=== PATIENT | female | born 1995 | race African-American/Black ===

== ENCOUNTER 2016-09-20 09:18 | Emergency (ER) | payer MEDICAID ==
[~2016-09-20 09:18] MED LIST: MOTI25CH CHEW
[2016-09-20 09:19] VITALS: BP 112/55; PULSE 80; RESP 15; TEMP 97.7; O2SAT 100
--- NOTE | 2016-09-20 10:12 | PD ---
HPI Chief Complaint: Abdominal Pain Time Seen by Provider: 09:37 Travel History International Travel<30 days: No Contact w/Intl Traveler<30days: No Traveled to known affect area: No History of Present Illness HPI The patient is a 21-year-old Annie female who presents emergency department for left groin pain of 2 weeks' duration. The patient notes an intermittent history of left groin pain that radiates into the medial aspect left leg for the last 2 weeks. The pain is intermittent, there is no obvious exacerbating or alleviating factors. The patient states she will have a sharp pain, like a muscle spasm, and the medial aspect of her left leg that is coming from the groin. The patient states it is self alleviating. The patient denies any dysuria, vaginal bleeding, urgency, frequency, hematuria, nausea, vomiting, abdominal pain, or constipation. The patient's last bowel movement was yesterday, was normal. Patient is with 1 previous miscarriage. The patient denies any known trauma to the affected area. PFSH Past Medical History Medical History: Denies Significant Hx Cancer: No Cardiovascular Problems: No Developmental Delay: No Diabetes: No Diminished Hearing: No Hepatitis: No Hiatal Hernia: No Hypertension: No Medical other: No Respiratory: No Immunizations Current: Yes Thyroid Disease: No Tetanus Vaccination: < 5 Years ?: Unknown LMP: 1 mth ago : 2 Para: 0 Miscarriage: 1 Dilation and Curettage (D&C): Yes Past Surgical History Pacemaker: No Other Surgery: No Social History Alcohol Use: No Tobacco Use: No Substance Use: No Allergies-Medications (Allergen,Severity, Reaction): Coded Allergies: Tomato (Verified Allergy, Mild, HIVES, 09/20/16) Reported Meds & Prescriptions Reported Meds & Active Scripts Active No Active Prescriptions or Reported Medications Review of Systems Except as stated in HPI: all other systems reviewed are Neg General / Constitutional: No: Fever Gastrointestinal: No: Nausea, Vomiting, Abdominal Pain Genitourinary: No: Urgency, Frequency, Dysuria, Hematuria, Pelvic Pain, Discharge, Vaginal Bleeding Musculoskeletal: Positive: Pain Skin: No Rash Neurologic: No: Paresthesia, Sensory Disturbance Physical Exam Narrative GENERAL: Awake, alert, pleasant 21-year-old female who appears her stated age and is in no acute respiratory distress. SKIN: Warm and dry. HEAD: Atraumatic. Normocephalic. EYES: No injection or drainage. ENT: No nasal bleeding or discharge. Mucous membranes pink and moist. NECK: Trachea midline. No JVD. GASTROINTESTINAL: Abdomen soft, minimal suprapubic tenderness. No rebound tenderness, guarding, or rigidity. Back: No CVA tenderness. MUSCULOSKELETAL: The patient locates her origin of pain located over the medial aspect the left leg and inguinal crease. There is no obvious lymphadenopathy. Positive left more pulse. Abduction of the left leg against resistance does not exacerbate her pain, but she does located in that same area as the abductor muscle. No obvious hernia. NEUROLOGICAL: Awake and alert. No obvious cranial nerve deficits. Motor grossly within normal limits. Normal speech. PSYCHIATRIC: Appropriate mood and affect; insight and judgment normal. Data Data Last Documented VS Vital Signs Date Time Temp Pulse Resp B/P Pulse Ox O2 Delivery O2 Flow Rate FiO2 09/20/16 09:19 97.7 80 15 112/55 100 Orders Urinalysis - C+S If Indicated (09/20/16 10:08) Ed Urine Pregnancytest Poc (09/20/16 10:18) Beta Hcg (Quant/Titer) (09/20/16 10:19) Us Pelvis (Ques Pr/Ect)W Trans (09/20/16 ) Ed Poc Ultrasound (09/20/16 ) Labs Laboratory Tests Test 09/20/16 09/20/16 10:15 10:50 Urine Color YELLOW Urine Turbidity CLEAR Urine pH 6.5 Urine Specific [place] 1.024 Urine Protein NEG mg/dL Urine Glucose (UA) NEG mg/dL Urine Ketones NEG mg/dL Urine Occult Blood NEG Urine Nitrite NEG Urine Bilirubin NEG Urine Urobilinogen LESS THAN 2.0 MG/DL Urine Leukocyte Esterase NEG Urine RBC 1 /hpf Urine WBC 1 /hpf Urine Squamous Epithelial 2 /hpf Cells Urine Bacteria RARE /hpf Urine Mucus FEW /lpf Microscopic Urinalysis Comment CULT NOT INDICATED Human Chorionic Gonadotropin, 69900 MIU/ML Quant MDM Medical Decision Making Medical Screen Exam Complete: Yes Emergency Medical Condition: Yes Medical Record Reviewed: Yes Differential Diagnosis Differential diagnosis includes groin strain, femoral hernia, UTI, ectopic , cervicitis, PID, ventral hernia. Narrative Course The patient's physical examination is unremarkable. The patient is currently asymptomatic and there is no precipitating or exacerbating factors during examination. UA was sent to lab and bedside test was obtained. The patient's bedside UA test was positive, therefore, formal beta hCG was sent to lab. Beta hCG was greater than 36,000. Therefore, ultrasound was performed to evaluate for IUP versus ectopic. Ultrasound reveals an IUP with positive heart tones. The patient is advised to take a vitamin, follow-up with industrial gas fitter, and return if symptoms worsen or progress. Diagnosis Primary Impression: Qualified Code: Z33.1 - , unspecified gestational age Additional Instructions: Please provide the patient a copy of her beta hCG results and ultrasound results at discharge. Take a vitamin daily. Follow-up with an industrial gas fitter. Work excuse for . Return if symptoms worsen or progress. Med/Other Pt SpecificInfo: No Change to Meds Scripts No Active Prescriptions or Reported Meds Disposition: 01 DISCHARGE HOME Condition: Stable Joel Dowling MD Sep 20, 2016 10:12
[2016-09-20 10:40] LABS: BACTERIA, URINE RARE /hpf; BLOOD, URINE NEG (NEG); GLUCOSE,URINE NEG (NEG); KETONE, URINE NEG (NEG); MUCUS URINE FEW /lpf (OCC); NITRITE,URINE NEG (NEG); PH, URINE 6.5 (5.0-8.5); SQUAMOUS EPITHELIAL CELL URINE 2 /hpf (0-5); URINE COLOR YELLOW (YELLW/STRAW)
[2016-09-20 10:48] LABS: COMMENT (UR) CULT NOT INDICATED; CULTURE IF INDICATED CULT NOT INDICATED
[2016-09-20 11:41] LABS: BETA HCG QUANT 36826 MIU/ML (0-5)
[2016-09-20 12:00] VITALS: BP 100/56; PULSE 78; RESP 16; O2SAT 100
--- NOTE | 2016-09-20 12:27 | RADRPT ---
EXAM DATE/TIME: 09/20/2016 11:18 [facility] COMPARISON: No previous studies available for comparison. INDICATIONS : Pelvic pain. LAB(S): Beta-hC,826 MEDICAL HISTORY : . SURGICAL HISTORY : D&C. ENCOUNTER: Initial ACUITY: 2 weeks PAIN SCORE: 2/10 LOCATION: Bilateral pelvis MEASUREMENTS: RIGHT OVARY: 3.3 x 1.9 x 2.6 cm UTERUS: 8.8 x 4.9 x 6.2 cm ENDOMETRIAL STRIPE: >20 mm LEFT OVARY: 3.6 x 1.5 x 2.0 cm FINDINGS: UTERUS: There is a single live IUP with a gestational age of 8 weeks 2 days. The CRL is 1.7 cm. A yolk sac is seen. cardiac activity is seen. RIGHT OVARY: The right ovary appears grossly normal. Small cysts are seen. LEFT OVARY: The left ovary appears grossly normal. Small cysts are seen. MISCELLANEOUS: There is minimal free fluid present. CONCLUSION: Single live IUP at 8 weeks 2 days. Eben Hicks MD on September 20, 2016 at 12:24 Board Certified Radiologist. This report was verified electronically.
== END 2016-09-20 12:59 | disposition home or self-care (01) ==
LOC: NEPC 09:18
DX: R10.32 Left lower quadrant pain (principal); Z33.1 Pregnant state, incidental
CPT/HCPCS: 76700; 76817; 81001; 84702; 84703

== ENCOUNTER 2016-10-18 20:26 | Emergency (ER) | payer MEDICAID ==
[~2016-10-18] VITALS: Ht 154.9 cm; Wt 55.0 kg
[2016-10-18 20:28] VITALS: BP 123/70; PULSE 59; RESP 16; TEMP 98.5; O2SAT 100
--- NOTE | 2016-10-18 20:33 | PD ---
Physical Exam Time Seen by Provider: 20:31 Narrative 21 y/o female c/o vaginal bleeding. 12 weeks , US here on september 20, IUP. Endorses abdominal pain. Denies n/v/d. VSS seen at triage desk. Awaiting bed placement. 2133: Left AMA. Data Data Last Documented VS Vital Signs Date Time Temp Pulse Resp B/P Pulse Ox O2 Delivery O2 Flow Rate FiO2 10/18/16 20:28 98.5 59 16 123/70 100 MDM Medical Record Reviewed: Yes Supervised Visit with PAM: Yes Scripts No Active Prescriptions or Reported Meds Tyler Bueno Oct 18, 2016 20:33
[2016-10-19] MEDS ORDERED: NORC5TAB PO (09:52)
== END 2016-10-18 21:38 | disposition left against medical advice (07) ==
LOC: NED 20:26
DX: O26.891 Other specified pregnancy related conditions, first trimester (principal); R10.30 Lower abdominal pain, unspecified
CPT/HCPCS: 99281

== ENCOUNTER 2016-10-19 01:38 | Emergency (ER) | payer MEDICAID ==
[2016-10-19 01:41] VITALS: BP 108/60; PULSE 78; RESP 20; TEMP 98.5; O2SAT 100
[2016-10-19] MEDS ORDERED: SODIUM CHLORIDE 0.9% FLUSH 10 ML FLUSH IVF PRN (04:45)
[2016-10-19 05:02] LABS: AUTOMATED NEUTROPHIL # 4.4 TH/MM3 (1.8-7.7); BASOPHIL % 0.4 % (0.0-2.0); EOSINOPHIL # 0.1 TH/MM3 (0-0.4); EOSINOPHIL % 0.7 % (0.0-4.0); HEMATOCRIT 36.6 % (35.0-46.0); LYMPH % 34.2 % (9.0-44.0); LYMPHOCYTE # 2.6 TH/MM3 (1.0-4.8); MEAN CELL VOLUME 86.4 FL (80.0-100.0); MEAN CORPUSCULAR HEMOGLOBIN 28.9 PG (27.0-34.0); MEAN CORPUSCULAR HGB CONC 33.4 % (32.0-36.0); MONO % 5.9 % (0.0-8.0); NEUT % 58.8 % (16.0-70.0); PLATELET COUNT 346 TH/MM3 (150-450); RED BLOOD COUNT 4.23 MIL/MM3 (4.00-5.30); RED CELL DISTRIBUTION WIDTH 13.2 % (11.6-17.2); WHITE BLOOD COUNT 7.5 TH/MM3 (4.0-11.0)
[2016-10-19 05:07] LABS: HEMO FLAGS DIFF FINAL
--- NOTE | 2016-10-19 05:08 | PD ---
HPI Chief Complaint: Abdominal Pain Time Seen by Provider: 04:49 Travel History International Travel<30 days: No Contact w/Intl Traveler<30days: No Traveled to known affect area: No History of Present Illness HPI Patient is a 21-year-old female who is A1 who presents to the ER with c/o of possible miscarriage. Patient reports that for the past 24 hours, she has had vaginal spotting which is now progressed to vaginal bleeding. Patient reports that she is passing large clots, reports concerns that she is having a miscarriage. Patient reports that she thinks that she is around 12 weeks , reports that she has seen Dr. Meeks in the past for her first which she had a normal delivery. Reports increased cramping to lower abdomen PFSH Past Medical History Medical History: Denies Significant Hx Diminished Hearing: No Immunizations Current: Yes Tetanus Vaccination: < 5 Years Influenza Vaccination: No ?: LMP: STATES 3 MONTHS : 2 Para: 0 Miscarriage: 1 Dilation and Curettage (D&C): Yes Past Surgical History Surgical History: No Previous Surgery Other Surgery: No Social History Alcohol Use: No Tobacco Use: No Substance Use: No Allergies-Medications (Allergen,Severity, Reaction): Coded Allergies: Tomato (Verified Allergy, Mild, HIVES, 10/19/16) Reported Meds & Prescriptions Reported Meds & Active Scripts Active No Active Prescriptions or Reported Medications Review of Systems General / Constitutional: No: Fever Eyes: No: Visual changes HENT: No: Headaches Cardiovascular: No: Chest Pain or Discomfort Respiratory: No: Shortness of Breath Gastrointestinal: Positive: Abdominal Pain Genitourinary: Positive: Vaginal Bleeding, No: Dysuria Musculoskeletal: No: Pain Skin: No Rash Neurologic: No: Weakness Psychiatric: No: Depression Endocrine: No: Polydipsia Hematologic/Lymphatic: No: Easy Bruising Physical Exam Narrative GENERAL: moderate distress SKIN: Focused skin assessment warm/dry. HEAD: Atraumatic. Normocephalic. EYES: Pupils equal and round. No injection or drainage. ENT: No nasal bleeding or discharge. Mucous membranes pink and moist. NECK: Trachea midline. No JVD. CARDIOVASCULAR: Regular rate and rhythm. No murmur appreciated. RESPIRATORY: No accessory muscle use. Clear to auscultation. Breath sounds equal bilaterally. GASTROINTESTINAL: Abdomen soft, increased tenderness to lower abdomen : pelvic exam performed with RN at bedside, patient with significant amount of blood and clots in vaginal vault, blood was evacuated using large cotton tips as well as low suction MUSCULOSKELETAL: No obvious deformities. No clubbing. No cyanosis. No edema. NEUROLOGICAL: Awake and alert. No obvious cranial nerve deficits. Motor grossly within normal limits. Normal speech. PSYCHIATRIC: Appropriate mood and affect; insight and judgment normal. Data Data Last Documented VS Vital Signs Date Time Temp Pulse Resp B/P Pulse Ox O2 Delivery O2 Flow Rate FiO2 10/19/16 06:17 16 10/19/16 05:35 84 107/67 100 Room Air 10/19/16 01:41 98.5 Orders Beta Hcg (Quant/Titer) (10/19/16 04:40) Complete Blood Count With Diff (10/19/16 04:40) Comprehensive Metabolic Panel (10/19/16 04:40) Gc And Chlamydia Pcr (10/19/16 04:40) Complete Rh (10/19/16 04:40) Wet Prep Profile (10/19/16 04:40) Urinalysis - C+S If Indicated (10/19/16 04:40) Ua Includes Microscopic (10/19/16 04:40) Iv Access Insert/Monitor (10/19/16 04:40) Sodium Chloride 0.9% Flush (Ns Flush) (10/19/16 04:45) Ed Urine Pregnancytest Poc (10/19/16 04:40) Morphine Inj (Morphine Inj) (10/19/16 05:15) Ondansetron Inj (Zofran Inj) (10/19/16 05:15) Morphine Inj (Morphine Inj) (10/19/16 05:30) Sodium Chlor 0.9% 1000 Ml Inj (Ns 1000 M (10/19/16 05:45) Urine Culture (10/19/16 05:30) Complete Blood Count With Diff (10/19/16 06:29) Us Pelvis (Ques Preg/Ectopic) (10/19/16 ) Misoprostol (Cytotec) (10/19/16 07:15) Morphine Inj (Morphine Inj) (10/19/16 07:15) Misoprostol (Cytotec) (10/19/16 07:30) Labs Laboratory Tests Test 10/19/16 10/19/16 10/19/16 04:50 05:30 06:45 White Blood Count 7.5 TH/MM3 9.5 TH/MM3 Red Blood Count 4.23 MIL/MM3 3.79 MIL/MM3 Hemoglobin 12.2 GM/DL 11.1 GM/DL Hematocrit 36.6 % 34.2 % Mean Corpuscular Volume 86.4 FL 90.4 FL Mean Corpuscular Hemoglobin 28.9 PG 29.2 PG Mean Corpuscular Hemoglobin 33.4 % 32.3 % Concent Red Cell Distribution Width 13.2 % 13.8 % Platelet Count 346 TH/MM3 202 TH/MM3 Mean Platelet Volume 9.0 FL 8.3 FL Neutrophils (%) (Auto) 58.8 % 74.1 % Lymphocytes (%) (Auto) 34.2 % 16.6 % Monocytes (%) (Auto) 5.9 % 8.3 % Eosinophils (%) (Auto) 0.7 % 0.5 % Basophils (%) (Auto) 0.4 % 0.5 % Neutrophils # (Auto) 4.4 TH/MM3 7.1 TH/MM3 Lymphocytes # (Auto) 2.6 TH/MM3 1.6 TH/MM3 Monocytes # (Auto) 0.4 TH/MM3 0.8 TH/MM3 Eosinophils # (Auto) 0.1 TH/MM3 0.1 TH/MM3 Basophils # (Auto) 0.0 TH/MM3 0.0 TH/MM3 CBC Comment DIFF FINAL DIFF FINAL Differential Comment Sodium Level 137 MEQ/L Potassium Level 4.3 MEQ/L Chloride Level 107 MEQ/L Carbon Dioxide Level 20.4 MEQ/L Anion Gap 10 MEQ/L Blood Urea Nitrogen 8 MG/DL Creatinine 0.71 MG/DL Estimat Glomerular Filtration 125 ML/MIN Rate Random Glucose 136 MG/DL Calcium Level 9.0 MG/DL Total Bilirubin 0.6 MG/DL Aspartate Amino Transf 18 U/L (AST/SGOT) Alanine Aminotransferase 14 U/L (ALT/SGPT) Alkaline Phosphatase 79 U/L Total Protein 8.0 GM/DL Albumin 3.5 GM/DL Human Chorionic Gonadotropin, 2395 MIU/ML Quant Blood Type O POSITIVE Rho(D) Type POSITIVE Urine Color YELLOW Urine Turbidity HAZY Urine pH 7.0 Urine Specific [place] 1.024 Urine Protein 100 mg/dL Urine Glucose (UA) TRACE mg/dL Urine Ketones NEG mg/dL Urine Occult Blood TRACE Urine Nitrite NEG Urine Bilirubin NEG Urine Urobilinogen LESS THAN 2.0 MG/DL Urine Leukocyte Esterase NEG Urine RBC 3 /hpf Urine WBC 7 /hpf Urine Squamous Epithelial <1 /hpf Cells Urine Bacteria RARE /hpf Urine Hyaline Casts 20 /lpf Urine Granular Casts 27 /lpf Urine Mucus MANY /lpf Microscopic Urinalysis Comment CATH-CULTURE IND MDM Medical Decision Making Medical Screen Exam Complete: Yes Emergency Medical Condition: Yes Interpretation(s) Vital Signs Date Time Temp Pulse Resp B/P Pulse Ox O2 Delivery O2 Flow Rate FiO2 10/19/16 02:07 16 10/19/16 01:41 98.5 78 20 108/60 100 Differential Diagnosis Spontaneous miscarriage, , ectopic Narrative Course 21-year-old female who is A1 presents to ER with c/o of irregular vaginal bleeding. Patient reports that for the past 24 hours, she has had increased lower abdominal cramping and vaginal bleeding. Patient concerned for possible miscarriage. Plan to perform pelvic exam on patient. Patient was Rh positive in the past, does not require RhoGAM. Plan to obtain HGC quant Pelvic exam performed, it appears the patient is having a miscarriage at this time. Patient with significant of blood in vaginal vault with clots. Blood and clots were evacuated using suction as well as until forceps and large cotton tips case reviewed with Dr. Meeks - recommends cytotec 800micrograms, if patient stops bleeding, then she can be safely discharged to home after repeat hgb. if patient continues to have vaginal bleeding, patient may possibly require D&C CBC & BMP Diagram 10/19/16 04:50 10/19/16 06:45 repeat hgb 11.1 - most likely dilutional as patient did receive 1 liter of IVF Patient reports that she still has heavy bleeding, will administer Cytotec and observe Critical Care Narrative Aggregate critical care time was 25 minutes. Time to perform other separately billable procedures was not included in the critical care time. My time did not include minutes spent treating any other patients simultaneously or on activities that did not directly contribute to the patient's treatment. The services I provided to this patient were to treat and/or prevent clinically significant deterioration that could result in: , decompensation, deterioration I provided critical care services requiring my management, as noted below: Chart data review, documentation time, medication orders and management, vital sign assessments/reviewing monitor data, ordering and reviewing lab tests, ordering and interpreting/reviewing x-rays and diagnostic studies, care of the patient and discussion of the patient with the admitting physicians. Diagnosis Primary Impression: Miscarriage Referrals: Radha Meeks MD Patient Instructions: General Instructions, Narcotic given in the ED Additional Instructions: please follow up with your electroplater apprentice as soon as possible return to ER as needed please follow up with your primary care doctor Scripts No Active Prescriptions or Reported Meds Silvia Jordan DO Oct 19, 2016 05:08
[2016-10-19] MEDS ORDERED: MORPHINE SULFATE 4 MG/ML INJ IV PUSH ONE ×3 (05:15→07:15)
[2016-10-19] MEDS ORDERED: ONDANSETRON HCL 4 MG/2 ML VIAL IV PUSH ONE (05:15)
[2016-10-19 05:34] LABS: ALKALINE PHOSPHATASE 79 U/L (45-117); BETA HCG QUANT 2395 MIU/ML (0-5); TOTAL BILIRUBIN ADULT 0.6 MG/DL (0.2-1.0)
[2016-10-19 05:35] VITALS: BP 107/67; PULSE 84; RESP 16; O2SAT 100
[2016-10-19 05:41] LABS: ALT (GPT) 14 U/L (10-53); ANION GAP 10 MEQ/L (5-15); AST (GOT) 18 U/L (15-37); BICARBONATE 20.4 MEQ/L (21.0-32.0); BLOOD UREA NITROGEN 8 MG/DL (7-18); CHLORIDE 107 MEQ/L (98-107); GLOMERULAR FILTRATION RATE 125 ML/MIN (>89); POTASSIUM 4.3 MEQ/L (3.5-5.1); SODIUM (NA) 137 MEQ/L (136-145)
[2016-10-19] MEDS ORDERED: SODIUM CHLOR 0.9% 1000 ML INJ 1,000 ML IV ONE ×2 (05:45→07:30)
[2016-10-19 05:51] LABS: BACTERIA, URINE RARE /hpf; BLOOD, URINE TRACE (NEG); COMMENT (UR) CATH-CULTURE IND; CULTURE IF INDICATED CATH CULTURE IND; GLUCOSE,URINE TRACE mg/dL (NEG); GRANULAR CAST, URINE 27 /lpf; HYALINE CAST, URINE 20 /lpf (RARE); KETONE, URINE NEG (NEG); MUCUS URINE MANY /lpf (OCC); NITRITE,URINE NEG (NEG); SQUAMOUS EPITHELIAL CELL URINE <1 /hpf (0-5); URINE COLOR YELLOW (YELLW/STRAW)
[2016-10-19 07:04] LABS: AUTOMATED NEUTROPHIL # 7.1 TH/MM3 (1.8-7.7); BASOPHIL % 0.5 % (0.0-2.0); EOSINOPHIL # 0.1 TH/MM3 (0-0.4); EOSINOPHIL % 0.5 % (0.0-4.0); HEMATOCRIT 34.2 % (35.0-46.0); HEMO FLAGS DIFF FINAL; LYMPH % 16.6 % (9.0-44.0); LYMPHOCYTE # 1.6 TH/MM3 (1.0-4.8); MEAN CELL VOLUME 90.4 FL (80.0-100.0); MEAN CORPUSCULAR HEMOGLOBIN 29.2 PG (27.0-34.0); MEAN CORPUSCULAR HGB CONC 32.3 % (32.0-36.0); MONO % 8.3 % (0.0-8.0); NEUT % 74.1 % (16.0-70.0); PLATELET COUNT 202 TH/MM3 (150-450); RED BLOOD COUNT 3.79 MIL/MM3 (4.00-5.30); RED CELL DISTRIBUTION WIDTH 13.8 % (11.6-17.2); WHITE BLOOD COUNT 9.5 TH/MM3 (4.0-11.0)
[2016-10-19] MEDS ORDERED: MISOPROSTOL 200 MCG TAB VAGINAL ONE ×2 (07:15→07:30)
--- NOTE | 2016-10-19 07:57 | RADRPT ---
EXAM DATE/TIME: 10/19/2016 06:20 [facility] COMPARISON: US PELVIS (QUEST PREG/ECTOPIC) W/TRANSVAG, September 20, 2016, 11:18. INDICATIONS : Vaginal bleeding. LAB(S): Beta-hC,395 MEDICAL HISTORY : . SURGICAL HISTORY : D&C. ENCOUNTER: Initial ACUITY: 1 day PAIN SCORE: 10/10 LOCATION: Bilateral pelvis MEASUREMENTS: UTERUS: 9.8 x 5.0 x 4.8 cm ENDOMETRIAL STRIPE: >20 mm RIGHT OVARY: 2.1 x 1.3 x 1.6 cm LEFT OVARY: 1.7 x 2.6 x 1.8 cm FINDINGS: Please note that the patient declined transvaginal exam. UTERUS: Myometrium is homogeneous without mass. There is heterogeneous echotexture the myometrium which is th ickened. Hypoechoic and anechoic areas are present within the endometrium and endocervical canal. RIGHT OVARY: Ovary contains no mass or significant cystic lesion. LEFT OVARY: Ovary contains no mass or significant cystic lesion. There is a simple cyst measuring 13 mm. MISCELLANEOUS: No free fluid. CONCLUSION: 1. The IUP documented on 09/20/2016 is no longer present indicating loss of . Suggest clinica l followup to ensure normalization of beta-hCG values. 2. The endometrium remains heterogeneously thickened with likely blood products within the endometria l and endocervical canal. Eben Sparks MD on October 19, 2016 at 7:52 Board Certified Radiologist. This report was verified electronically.
[2016-10-19 08:00] VITALS: BP 102/55; PULSE 72; RESP 16; O2SAT 100
[2016-10-19] MEDS ORDERED: MORPHINE SULFATE 4 MG/ML INJ IV PUSH PRN (08:15)
--- NOTE | 2016-10-19 08:15 | PD ---
Physical Exam Date Seen by Provider: Oct 19, 2016 Narrative Care assumed from Dr. Jordan at 7 AM. Patient is having a miscarriage. Dr. Jordan had consult to Dr. Meeks who has now seen the patient. He recommends Cytotec and observation. He also recommends that we be very liberal with pain medication. Data Data Last Documented VS Vital Signs Date Time Temp Pulse Resp B/P Pulse Ox O2 Delivery O2 Flow Rate FiO2 10/19/16 08:00 72 16 102/55 100 Room Air 10/19/16 01:41 98.5 Orders Beta Hcg (Quant/Titer) (10/19/16 04:40) Complete Blood Count With Diff (10/19/16 04:40) Comprehensive Metabolic Panel (10/19/16 04:40) Gc And Chlamydia Pcr (10/19/16 04:40) Complete Rh (10/19/16 04:40) Wet Prep Profile (10/19/16 04:40) Urinalysis - C+S If Indicated (10/19/16 04:40) Ua Includes Microscopic (10/19/16 04:40) Iv Access Insert/Monitor (10/19/16 04:40) Sodium Chloride 0.9% Flush (Ns Flush) (10/19/16 04:45) Ed Urine Pregnancytest Poc (10/19/16 04:40) Morphine Inj (Morphine Inj) (10/19/16 05:15) Ondansetron Inj (Zofran Inj) (10/19/16 05:15) Morphine Inj (Morphine Inj) (10/19/16 05:30) Sodium Chlor 0.9% 1000 Ml Inj (Ns 1000 M (10/19/16 05:45) Urine Culture (10/19/16 05:30) Complete Blood Count With Diff (10/19/16 06:29) Us Pelvis (Ques Preg/Ectopic) (10/19/16 ) Misoprostol (Cytotec) (10/19/16 07:15) Morphine Inj (Morphine Inj) (10/19/16 07:15) Misoprostol (Cytotec) (10/19/16 07:30) Sodium Chlor 0.9% 1000 Ml Inj (Ns 1000 M (10/19/16 07:30) Morphine Inj (Morphine Inj) (10/19/16 08:15) Labs Laboratory Tests Test 410/19/16 10/19/16 04:50 05:30 06:45 White Blood Count 7.5 TH/MM3 9.5 TH/MM3 Red Blood Count 4.23 MIL/MM3 3.79 MIL/MM3 Hemoglobin 12.2 GM/DL 11.1 GM/DL Hematocrit 36.6 % 34.2 % Mean Corpuscular Volume 86.4 FL 90.4 FL Mean Corpuscular Hemoglobin 28.9 PG 29.2 PG Mean Corpuscular Hemoglobin 33.4 % 32.3 % Concent Red Cell Distribution Width 13.2 % 13.8 % Platelet Count 346 TH/MM3 202 TH/MM3 Mean Platelet Volume 9.0 FL 8.3 FL Neutrophils (%) (Auto) 58.8 % 74.1 % Lymphocytes (%) (Auto) 34.2 % 16.6 % Monocytes (%) (Auto) 5.9 % 8.3 % Eosinophils (%) (Auto) 0.7 % 0.5 % Basophils (%) (Auto) 0.4 % 0.5 % Neutrophils # (Auto) 4.4 TH/MM3 7.1 TH/MM3 Lymphocytes # (Auto) 2.6 TH/MM3 1.6 TH/MM3 Monocytes # (Auto) 0.4 TH/MM3 0.8 TH/MM3 Eosinophils # (Auto) 0.1 TH/MM3 0.1 TH/MM3 Basophils # (Auto) 0.0 TH/MM3 0.0 TH/MM3 CBC Comment DIFF FINAL DIFF FINAL Differential Comment Sodium Level 137 MEQ/L Potassium Level 4.3 MEQ/L Chloride Level 107 MEQ/L Carbon Dioxide Level 20.4 MEQ/L Anion Gap 10 MEQ/L Blood Urea Nitrogen 8 MG/DL Creatinine 0.71 MG/DL Estimat Glomerular Filtration 125 ML/MIN Rate Random Glucose 136 MG/DL Calcium Level 9.0 MG/DL Total Bilirubin 0.6 MG/DL Aspartate Amino Transf 18 U/L (AST/SGOT) Alanine Aminotransferase 14 U/L (ALT/SGPT) Alkaline Phosphatase 79 U/L Total Protein 8.0 GM/DL Albumin 3.5 GM/DL Human Chorionic Gonadotropin, 2395 MIU/ML Quant Blood Type O POSITIVE Rho(D) Type POSITIVE Urine Color YELLOW Urine Turbidity HAZY Urine pH 7.0 Urine Specific [place] 1.024 Urine Protein 100 mg/dL Urine Glucose (UA) TRACE mg/dL Urine Ketones NEG mg/dL Urine Occult Blood TRACE Urine Nitrite NEG Urine Bilirubin NEG Urine Urobilinogen LESS THAN 2.0 MG/DL Urine Leukocyte Esterase NEG Urine RBC 3 /hpf Urine WBC 7 /hpf Urine Squamous Epithelial <1 /hpf Cells Urine Bacteria RARE /hpf Urine Hyaline Casts 20 /lpf Urine Granular Casts 27 /lpf Urine Mucus MANY /lpf Microscopic Urinalysis Comment CATH-CULTURE IND MDM Supervised Visit with PAM: No Narrative Course The patient has had very little bleeding since receiving the Cytotec. Dr. Meeks will see her in follow-up in one week. Physician Communication Physician Communication Dr Meeks Diagnosis Primary Impression: Miscarriage Referrals: Radha Meeks MD 1 week Patient Instructions: General Instructions, Miscarriage (DC), Narcotic given in the ED Additional Instruction: please follow up with your electrical transmission engineer as soon as possible return to ER as needed please follow up with your primary care doctor Scripts Hydrocodone-Acetaminophen ([place])5-325 mg Tab1 Tab PO Q4H PRN (PAIN) #12 TAB Ref 0 Prov:Cristin Jacques MD 10/19/16 Disposition: 01 DISCHARGE HOME Condition: Stable Cristin Jacques MD Oct 19, 2016 08:15
--- NOTE | 2016-10-19 08:26 | MB ---
cc: [facility] DATE OF CONSULTATION October 19, 2016 ER NOTE CHIEF COMPLAINT Miscarriage in process. HISTORY OF PRESENT ILLNESS Ms. Mcdonough is a 21-year-old female, para 1-0-1-1 who presents to the emergency room with bleeding heavily and a possible miscarriage. She was seen at 8 weeks in the ER, saw heart tones and was told that she was . She began bleeding yesterday and it became heavy. She came to the emergency room for treatment. PAST OB HISTORY Para 1-0-1-1. She had a missed AB, got a D&E and she had one at term. PAST FLUX MIXER HISTORY Negative. PAST SURGICAL HISTORY Remarkable for dilation and evacuation of the uterus after a missed AB. PAST MEDICAL HISTORY Remarkable for anxiety. ALLERGIES No known drug allergies. CURRENT MEDICATIONS None. FAMILY HISTORY Noncontributory. SOCIAL HISTORY She is single. She does not smoke, drink or take medications. REVIEW OF SYSTEMS HEENT: She denies any headaches. CARDIOVASCULAR: No chest pain or pressure. RESPIRATORY: No shortness of breath or coughing. GASTROINTESTINAL: She does have lower abdominal pelvic pain, cramping from the miscarriage. No change in bowel or bladder habits. No melena, no hematochezia. : She has vaginal bleeding. She denies any dysuria. SKIN: No rash, no recent history of illness. NEUROLOGIC: No weakness or problems with gait. PHYSICAL EXAMINATION GENERAL: A well-developed, well-nourished female in no acute distress resting comfortably in bed. VITAL SIGNS: Her temperature is 98.5. Her pulse is 84, respirations 16, blood pressure 107/67. HEENT: Normocephalic, atraumatic. NECK: Supple. Trachea in the midline. CHEST: Clear to auscultation and percussion. HEART: The heart has a regular rate and rhythm. ABDOMEN: The abdomen is soft, nontender, scaphoid. PELVIC EXAM: External genitalia looks normal. Her bleeding is mild at this time. LABORATORY WORKUP White count of 9.5. Her hemoglobin is 11.1, hematocrit 34. Her ultrasound reveals possible products of conception in the uterus. ASSESSMENT AND PLAN 1. Spontaneous miscarriage. We will go ahead and give her some Cytotec and see if we can empty the uterus in that way. We will keep her comfortable in the meantime. She may need to go to the operating room for a D&C. However, we will try to avoid that if possible. Plan to watch her for a couple hours to make sure she is okay. 2. Her blood type is positive. She does not need RhoGAM. We will keep an eye on her in the emergency room and see how she does. R. MD BERENICE [place]/BRIDGETT /8:00 AM /8:13 AM
[2016-10-19 09:30] VITALS: BP 104/63; PULSE 100; RESP 16; O2SAT 100
[2016-10-19] MEDS ORDERED: NORC5TAB PO (09:52)
== END 2016-10-19 10:32 | disposition home or self-care (01) ==
LOC: NEPC 01:38
DX: O03.9 Complete or unspecified spontaneous abortion without complication (principal)
CPT/HCPCS: 76700; 80053; 81001; 84702; 85025; 86901; 87086; 96361; 96374; 96375; 96376; 99284; J2270; J2405; J7030

== ENCOUNTER 2017-07-19 08:08 | Emergency (ER) | payer MEDICAID ==
[~2017-07-19] VITALS: Ht 154.9 cm; Wt 53.5 kg
[2017-07-19 08:09] VITALS: BP 115/57; PULSE 72; RESP 16; TEMP 98.9; O2SAT 99
--- NOTE | 2017-07-19 10:16 | PD ---
HPI Chief Complaint: Abdominal Pain Time Seen by Provider: 10:16 Travel History International Travel<30 days: No Contact w/Intl Traveler<30days: No Traveled to known affect area: No History of Present Illness HPI 22-year-old female came to the emergency room with history of lower abdominal pressure and discomfort for past 1 month. When I arrived in the room to see the patient there was a bedside done already which was positive. Patient says her last menstrual period was June 09, 2017. This would make the patient is A2. No bleeding or spotting. No history of dysuria. Patient says that knowing that she is now would make sense of how she has been feeling. Patient was eating potato chips and drinking pineapple juice when I arrived in the room to see her. [facility]LY [facility] Past Medical History Narrative Medical List of her past medical, surgical, social and family history is reviewed from the nursing note. Diminished Hearing: No Immunizations Current: Yes ?: Unknown LMP: : 2 Para: 0 Miscarriage: 1 Dilation and Curettage (D&C): Yes Past Surgical History Other Surgery: No Social History Alcohol Use: No Tobacco Use: No Substance Use: No Allergies-Medications (Allergen,Severity, Reaction): Coded Allergies: tomato (Verified Allergy, Mild, HIVES, 07/19/17) Comments List of allergies reviewed from the nursing note. Reported Meds & Prescriptions Reported Meds & Active Scripts Active No Active Prescriptions or Reported Medications Narrative Medication List of her home medications reviewed from the nursing note. Review of Systems Except as stated in HPI: all other systems reviewed are Neg Genitourinary: Positive: Pelvic Pain Physical Exam Narrative GENERAL: Awake, alert, no obvious distress SKIN: Focused skin assessment warm/dry. HEAD: Atraumatic. Normocephalic. EYES: Pupils equal and round. No scleral icterus. No injection or drainage. ENT: No nasal bleeding or discharge. Mucous membranes pink and moist. NECK: Trachea midline. No JVD. CARDIOVASCULAR: Regular rate and rhythm. No murmur appreciated. RESPIRATORY: No accessory muscle use. Clear to auscultation. Breath sounds equal bilaterally. GASTROINTESTINAL: Abdomen soft, non-tender, nondistended. Hepatic and splenic margins not palpable. MUSCULOSKELETAL: No obvious deformities. No clubbing. No cyanosis. No edema. NEUROLOGICAL: Awake and alert. No obvious cranial nerve deficits. Motor grossly within normal limits. Normal speech. PSYCHIATRIC: Appropriate mood and affect; insight and judgment normal. Data Data Last Documented VS Vital Signs Date Time Temp Pulse Resp B/P (MAP) Pulse Ox O2 Delivery O2 Flow Rate FiO2 07/19/17 11:28 07/19/17 08:09 98.9 72 16 99 Room Air Orders Orders Urinalysis - C+S If Indicated (07/19/17 10:23) Ed Urine Pregnancytest Poc (07/19/17 10:42) Ed Discharge Order (07/19/17 10:52) Labs Laboratory Tests Test 07/19/17 10:00 Urine Color YELLOW Urine Turbidity CLEAR Urine pH 7.5 Urine Specific Merritt 1.019 Urine Protein NEG mg/dL Urine Glucose (UA) NEG mg/dL Urine Ketones NEG mg/dL Urine Occult Blood NEG Urine Nitrite NEG Urine Bilirubin NEG Urine Urobilinogen LESS THAN 2.0 MG/DL Urine Leukocyte Esterase NEG Urine RBC LESS THAN 1 /hpf Urine WBC 1 /hpf Urine Squamous Epithelial Cells 1 /hpf Urine Mucus FEW /lpf Microscopic Urinalysis Comment CULT NOT INDICATED MDM Medical Decision Making Medical Screen Exam Complete: Yes Emergency Medical Condition: Yes Medical Record Reviewed: Yes Differential Diagnosis , UTI Narrative Course 10:55 AM urine was positive and UA was negative for UTI. I'm comfortable discharging her home with instructions. Procedures EKG Prior to Arrival: No Diagnosis Primary Impression: First trimester Additional Impression: Sensation of pelvic pressure during Referrals: Primary Care Physician Additional Instructions: Please take vitamins daily which is available [id number]. Drink lots of fluids to keep herself hydrated. Try to get an appointment with the OB for this to follow up with. Return to the ER if condition worsens or any other new concerns like vaginal bleeding. Scripts No Active Prescriptions or Reported Meds Disposition: 01 DISCHARGE HOME Condition: Stable Ward Gomez MD Jul 19, 2017 10:16
[2017-07-19 10:45] LABS: BILIRUBIN, URINE NEG (NEG); BLOOD, URINE NEG (NEG); GLUCOSE,URINE NEG (NEG); KETONE, URINE NEG (NEG); MUCUS URINE FEW /lpf (OCC); NITRITE,URINE NEG (NEG); PH, URINE 7.5 (5.0-8.5); SQUAMOUS EPITHELIAL CELL URINE 1 /hpf (0-5); URINE COLOR YELLOW (YELLW/STRAW); URINE LEUKOCYTE ESTERASE NEG (NEG)
== END 2017-07-19 11:20 | disposition home or self-care (01) ==
LOC: NEPD 08:08
DX: O26.891 Other specified pregnancy related conditions, first trimester (principal); R10.9 Unspecified abdominal pain
CPT/HCPCS: 81001; 84703; 99283

== ENCOUNTER 2018-02-19 14:56 | Inpatient (IN) ==
[2018-02-19] MEDS ORDERED: Naloxone Inj 0.4 MG/ML Vial IV.PUSH PRN ×2 (15:20→21:59)
[2018-02-19] MEDS ORDERED: fentaNYL Citrate Inj 100 MCG/2 ML Ampul IV.PUSH PRN ×2 (15:20)
[2018-02-19] MEDS ORDERED: Sod Chloride 0.9% Inj 1,000 ML IV.CONT PRN (15:20)
[2018-02-19] MEDS ORDERED: Sodium Chlor 0.9% Inj 500 ML IV.SIG PRN (15:20)
[2018-02-19] MEDS ORDERED: Citric Acid/Sodium Citrate Liq 30 ML UDC PO SCH (15:30)
[2018-02-19] MEDS ORDERED: Oxytocin 30 Units/500ml Premix 30 UNITS/500 ML BAG IV.SIG ONE (16:00)
[2018-02-19] MEDS ORDERED: Penicillin G Potassium Inj 5,000,000 UNIT in Sodium Chloride 0.9% Inj 100 ML IV.SIG ONE ×2 (16:00→21:15)
[2018-02-19 16:51] LABS: Baso % (Auto) 0.6 % (0.0-2.0); Eos % (Auto) 0.5 % (0.0-4.0); Hematocrit 30.6 % (35.0-46.0); Hemoglobin 10.2 gm/dL (11.6-15.3); Lymph # (Auto) 2.3 th/mm3 (1.0-4.8); Lymph % (Auto) 30.9 % (9.0-44.0); Mean Corpuscular HGB Conc 33.4 % (32.0-36.0); Mean Corpuscular Hemoglobin 26.2 pg (27.0-34.0); Mean Corpuscular Volume 78.5 fL (80.0-100.0); Mean Platelet Volume 9.3 fL (7.0-11.0); Mono # (Auto) 0.8 th/mm3 (0.0-0.9); Mono % (Auto) 10.9 % (0.0-8.0); Neut # (Auto) 4.2 th/mm3 (1.8-7.7); Neut % (Auto) 57.1 % (16.0-70.0); Platelet Count 233 th/mm3 (150-450); Red Blood Count 3.89 mil/mm3 (4.00-5.30); Red Cell Distribution Width 15.4 % (11.6-17.2); White Blood Count 7.3 th/mm3 (4.0-11.0)
--- NOTE | 2018-02-19 16:52 | P.HP ---
History of Present Illness Service: LABOR AND DELIVERY Primary Care Physician: No Primary Care Physician Chief Complaint: CHOLESTASIS IN , 37 WEEK History of Present Illness: PT ADMITTED FOR INDUCTION 37 3/7 WEEKS CHOLESTASIS IN Inpatient Certification: I certify that the inpatient services were ordered in accordance with Medicare regulations governing the order. This includes certification that hospital inpatient services are reasonable and necessary and in the case of services not specified as inpatient-only under 42 CFR 419.22(n), that they are appropriately provided as inpatient services in accordance to with the 2-midnight benchmark under 43 CFR 412.3(e) Estimated Total Length of Stay (Days): 2 Plans for Post Hospital Care: Home [facility] - History History Provided By: Medical Record - Medical History Medical History: Medical History (Last Updated 02/19/18 @ 16:50 by ANAYA Santana) Anemia GINI I (cervical intraepithelial neoplasia I) - Surgical History Surgical History: Surgical History (Last Updated 02/19/18 @ 16:50 by ANAYA Santana) History of dilation and curettage - Family History Family History: Family History (Last Updated 02/19/18 @ 16:51 by ANAYA Santana) Aunt Family history of breast cancer Grandparent Hypertension Sister Hypertension - Tobacco History Second Hand Smoke Exposure: No Tobacco Use In Past 30 Days: No Smoking Status: Never smoker - Alcohol History How Often Do You Have a Drink Containing Alcohol: Never - Travel History History of Recent Travel: No Medications and Allergies Active Medications: Active Medications Citric Acid/Sodium Citrate (Sodium Citrate/Citric Acid Liq) 30 ml PO AGRICULTURAL PRODUCE PACKER [facility] Stop: 02/23/18 15:29 Fentanyl Citrate (Fentanyl Inj) 50 mcg IV.PUSH Q1H PRN PRN Reason: Pain Scale 3 - 5 Fentanyl Citrate (Fentanyl Inj) 100 mcg IV.PUSH Q1H PRN PRN Reason: PAIN SCALE 6 TO 10 Lactated Ringer's (Lr 1000 Ml Inj) 1,000 mls @ 125 mls/hr IV.CONT .Q8H [facility] Lactated Ringer's (Lr 1000 Ml Inj) 1,000 mls @ 3,000 mls/hr IV.SIG UNSCH PRN PRN Reason: compromise or epidural Sodium Chloride (Ns Inj) 500 mls @ 1,000 mls/hr IV.SIG UNSCH PRN PRN Reason: SEE LABEL COMMENTS Sodium Chloride (Ns Inj) 1,000 mls @ 100 mls/hr IV.CONT .Q10H PRN PRN Reason: SEE LABEL COMMENTS Penicillin G Potassium 2,500, (000 unit/ Sodium Chloride) 100 mls @ 200 mls/hr IV.SIG Q4H MELLISSA Lidocaine HCl (Xylocaine 1% Inj) 0.1 ml I-DERMAL UNSCH PRN PRN Reason: For IV start Lidocaine HCl (Xylocaine 1% Inj) 10 ml INFILTRATN UNSCH PRN PRN Reason: For episiotomy repair Mineral Oil (Muri-Lube Oil) 10 ml TOPICAL UNSCH PRN PRN Reason: PRN perineal massage Naloxone HCl (Narcan Inj) 0.1 mg IV.PUSH Q2M PRN PRN Reason: for opiate reversal Allergies Allergy/AdvReac Type Severity Reaction Status Date / Time tomato Allergy Mild HIVES Verified 07/19/17 10:22 Home Medications Medication Instructions Recorded Confirmed Type No Known Home Medications 02/19/18 02/19/18 History Exam Vital signs: Vital Signs 02/19/18 15:37 02/19/18 15:38 Temperature 98.3 F Pulse Rate 86 Respiratory Rate 18 Blood Pressure 116/68 - Constitutional no acute distress - Routine HEENT Exam Head: Present: normocephalic ENT: Present: mucous membranes moist - Routine Neck Exam Present: supple - Routine Respiratory Exam Present: CTA bilaterally - Routine Cardiovascular Exam Present: RRR - Routine Abdominal Exam Present: soft Comments: GRAVID - Routine Extremities Exam Present: normal capillary refill - Routine Skin Exam Present: intact - Routine Neurological Exam Present: alert, oriented X3 Results - Labs CBC & Chem 7: 02/19/18 16:00 Caprini VTE Risk Assessment Caprini VTE Risk Assessment: No/Low Risk (score <= 1) Caprini Risk Assessment Model: Point Value = 1 Point Value = 2 Point Value = 3 Point Value = 5 Age 41-60 Minor surgery BMI > 25 kg/m2 Swollen legs Varicose veins or History of unexplained or recurrent spontaneous Oral contraceptives or hormone replacement Sepsis (< 1 month) Serious lung disease, including pneumonia (< 1 month) Abnormal pulmonary function Acute myocardial infarction Congestive heart failure (< 1 month) History of inflammatory bowel disease Medical patient at bed rest Age 61-74 Arthroscopic surgery Major open surgery (> 45 min) Laparoscopic surgery (> 45 min) Malignancy Confined to bed (> 72 hours) Immobilizing plaster cast Central venous access Age >= 75 History of VTE Family history of VTE Factor V Leiden Prothrombin 43281H Lupus anticoagulant Anticardiolipin antibodies Elevated serum homocysteine Heparin-induced thrombocytopenia Other congenital or acquired thrombophilia Stroke (< 1 month) Elective arthroplasty Hip, pelvis, or leg fracture Acute spinal cord injury (< 1 month) Prophylaxis Regimen: Total Risk Factor Score Risk Level Prophylaxis Regimen 0-1 Low Early ambulation 2 Moderate Order ONE of the following: *Sequential Compression Device (SCD) *Heparin 5000 units SQ BID 3-4 Higher Order ONE of the following medications: *Heparin 5000 units SQ TID *Enoxaparin/Lovenox 40 mg SQ daily (WT < 150 kg, CrCl > 30 mL/min) *Enoxaparin/Lovenox 30 mg SQ daily (WT < 150 kg, CrCl > 10-29 mL/min) *Enoxaparin/Lovenox 30 mg SQ BID (WT < 150 kg, CrCl > 30 mL/min) AND/OR *Sequential Compression Device (SCD) 5 or more Highest Order ONE of the following medications: *Heparin 5000 units SQ TID (Preferred with Epidurals) *Enoxaparin/Lovenox 40 mg SQ daily (WT < 150 kg, CrCl > 30 mL/min) *Enoxaparin/Lovenox 30 mg SQ daily (WT < 150 kg, CrCl > 10-29 mL/min) *Enoxaparin/Lovenox 30 mg SQ BID (WT < 150 kg, CrCl > 30 mL/min) AND *Sequential Compression Device (SCD) Assessment and Plan - Plan MONITORING TONIGHT TREATMENT FOR GBS AROM IN THE MORNING Code Status: FULL Discharge Planning: DC HOME IN 2-3 DAYS
[2018-02-19 19:40] VITALS: RESP 18
[2018-02-19] MEDS ORDERED: Zolpidem Tartrate 5 MG Tablet PO ONE (20:00)
[2018-02-19 20:40] LABS: Amphetamine Urine With Conf Neg (Neg); Benzodiazepine Urine With Conf Neg (Neg)
[2018-02-19] MEDS ORDERED: Lidocaine 1% Inj 50 ML Vial ONE (21:32)
[2018-02-19] MEDS ORDERED: Ketorolac Inj 30 MG/ML (IVP) Vial ONE (21:52)
[2018-02-19] MEDS ORDERED: Benzocaine 20% Top Spray 60 ML Can TOPICAL PRN (21:59)
[2018-02-19] MEDS ORDERED: Bisacodyl 10 MG Supp RECTAL PRN (21:59)
[2018-02-19] MEDS ORDERED: Witch Hazel 50%/Glyderin 12.5% 40 Pad Jar RECTAL PRN (21:59)
--- NOTE | 2018-02-19 21:59 | P.OBDELI ---
Patient Started Active Labor: Yes Active Labor Start Date: 02/19/18 Medical Induction of Labor: No Artificial Rupture of Membrane: No Anesthesia: None Episiotomy: midline Vaginal Delivery: Normal Presentation: Occiput anterior Nuchal Cord: None Delayed Cord Clamping (45 sec): Yes Placenta: Spontaneous delivery, Intact, 3 vessel cord Laceration: Episiotomy Repair: Vicryl running : Male Infant Male A score (1 min): 9 score (5 min): 9 (Nice delivery of Eros Felix his sister waiting outside. MLE repaired with 3-0 vicryl.)
[2018-02-19] MEDS ORDERED: Oxytocin 30 Units/500ml Premix 30 UNITS/500 ML BAG IV.CONT SCH (22:00)
[2018-02-19] MEDS ORDERED: Measles/Mumps/Rubella Vaccine Inj 0.5 ML Vial SQ ONE (23:00)
[2018-02-19] MEDS ORDERED: Diphtheria/Tetanus/Pertussis Vaccine Inj 0.5 ML Syringe IM ONE (23:00)
[2018-02-19] MEDS: Acetaminophen 325 MG Tablet PO PRN (23:30)
[2018-02-20] MEDS: Ibuprofen 400 MG Tablet PO PRN ×2 (03:55→13:53)
[2018-02-20] MEDS: Acetaminophen 325 MG Tablet PO PRN (03:56)
[2018-02-20] MEDS ORDERED: Penicillin G Potassium Inj 5,000,000 UNIT in Sodium Chloride 0.9% Inj 100 ML IV.SIG ONE (04:00)
[2018-02-20] MEDS ORDERED: Oxytocin 30 Units/500ml Premix 30 UNITS/500 ML BAG IV.SIG PRN (04:00)
[2018-02-20] MEDS ORDERED: Penicillin G Potassium Inj 2,500,000 UNIT in Sodium Chlor 0.9% Inj 100 ML IV.SIG SCH (08:00)
[2018-02-20] MEDS: Senna/Docusate Sodium 8.6/50 MG Tablet PO SCH ×2 (08:47→20:12)
--- NOTE | 2018-02-20 13:02 | P.PNOB ---
Subjective Post day: 1 Objective Vital Signs/I&O: Vital Signs 02/19/18 15:37 02/19/18 15:38 02/19/18 17:26 Temperature 98.3 F 98.6 F Pulse Rate 86 73 Respiratory Rate 18 17 Blood Pressure 116/68 120/75 02/19/18 19:15 02/19/18 19:39 02/19/18 20:00 Temperature 98.2 F Pulse Rate 91 H Respiratory Rate 17 18 Blood Pressure 121/77 02/19/18 21:10 02/19/18 21:58 02/19/18 22:15 Temperature Pulse Rate 113 H 102 H 91 H Respiratory Rate 18 Blood Pressure 134/78 128/78 02/19/18 22:19 02/19/18 22:30 02/19/18 22:45 Temperature Pulse Rate 78 90 105 H Respiratory Rate 18 18 Blood Pressure 129/95 H 101/61 106/72 02/19/18 23:15 02/19/18 23:50 02/20/18 04:00 Temperature 98.5 F 97.9 F Pulse Rate 75 85 76 Respiratory Rate 18 18 18 Blood Pressure 132/77 109/65 109/72 02/20/18 08:00 Temperature 98.6 F Pulse Rate 70 Respiratory Rate 18 Blood Pressure 109/76 Intake & Output 02/19/18 02/20/18 02/20/18 18:59 06:59 18:59 Weight 65.317 kg Other: Weight On Admission 65.317 kg Result Diagrams: 02/19/18 16:00 Objective Remarks: GENERAL: Well-nourished, well-developed patient. CARDIOVASCULAR: Regular rate and rhythm without murmurs, gallops, or rubs. RESPIRATORY: Breath sounds equal bilaterally. No accessory muscle use. ABDOMEN/GI: Abdomen soft, non-tender. Fundus: Firm, non-tender at umbilicus. GENITOURINARY: Light to moderate bleeding. EXTREMITIES: No cyanosis or edema, non-tender, without signs of DVT. Medications and IVs: Active Medications Acetaminophen (Tylenol) 650 mg PO Q4H PRN PRN Reason: PAIN SCALE 1 TO 2 Last Admin: 02/20/18 03:56 Dose: 325 mg Al Hydroxide/Mg Hydroxide (Milk Of Magnesia Liq) 30 ml PO Q12H PRN PRN Reason: Mild Constipation Benzocaine (Americaine 20% Top [place]) 1 spray TOPICAL Q4H PRN PRN Reason: For Perineum Discomfort Bisacodyl (Dulcolax Supp) 10 mg RECTAL DAILY PRN PRN Reason: SEVERE CONSITIPATION Oxytocin (Pitocin 30 Units/Ns 500 Ml Premix) 30 units in 500 mls @ 2 mls/hr IV.SIG TITRATE PRN; Protocol PRN Reason: For induction of labor Ibuprofen (Motrin) 800 mg PO Q8H PRN PRN Reason: For cramping Last Admin: 02/20/18 03:55 Dose: 800 mg Lactulose (Lactulose Liq) 30 ml PO DAILY PRN PRN Reason: SEVERE CONSITIPATION Naloxone HCl (Narcan Inj) 0.1 mg IV.PUSH Q2M PRN PRN Reason: for opiate reversal Ondansetron HCl (Zofran Odt) 4 mg PO Q6H PRN PRN Reason: NAUSEA OR VOMITING Oxycodone/Acetaminophen (Percocet 5/325 Mg) 1 tab PO Q4H PRN PRN Reason: PAIN SCALE 7 TO 10 SEVERE Last Admin: 02/20/18 08:47 Dose: 1 tab Senna/Docusate Sodium (Jamilah-Colace) 1 tab PO BID MELLISSA Last Admin: 02/20/18 08:47 Dose: 1 tab Sennosides (Senokot) 17.2 mg PO Q12H PRN PRN Reason: Moderate Constipation Sodium Chloride (Ns Flush) 2 ml IV.FLUSH BID MELLISSA Sodium Chloride (Ns Flush) 2 ml IV.FLUSH UNSCH PRN PRN Reason: FLUSH AFTER USING IV ACCESS Witch Tamika/Glycerin (Tucks Pads) 1 applicatio RECTAL QID PRN PRN Reason: HEMORRHOIDS Zolpidem Tartrate (Ambien) 5 mg PO HS PRN PRN Reason: SLEEP Assessment and Plan - Diagnosis (1) (normal spontaneous vaginal delivery) Code(s): O80 - Encounter for full-term uncomplicated delivery Status: Acute Plan: ROUTINE - Plan PT DOING WELL C/O INTENSE CRAMPING ADVISED TO TRY PERCOCET WITH MORTIN BONDING WITH ROUTINE CARE Discharge Planning: DC HOME TOMORROW
[2018-02-20] MEDS ORDERED: Zolpidem Tartrate 5 MG Tablet PO PRN (21:00)
[2018-02-21] MEDS: Ibuprofen 400 MG Tablet PO PRN ×2 (01:25→12:45)
[2018-02-21] MEDS: Senna/Docusate Sodium 8.6/50 MG Tablet PO SCH (10:11)
--- NOTE | 2018-02-21 12:48 | P.PNOB ---
Subjective Post day: 2 Objective Vital Signs/I&O: Vital Signs 02/20/18 20:00 02/21/18 08:00 Temperature 98.2 F 98.1 F Pulse Rate 74 76 Respiratory Rate 18 18 Blood Pressure 109/66 120/76 Result Diagrams: 02/19/18 16:00 Objective Remarks: GENERAL: Well-nourished, well-developed patient. CARDIOVASCULAR: Regular rate and rhythm without murmurs, gallops, or rubs. RESPIRATORY: Breath sounds equal bilaterally. No accessory muscle use. ABDOMEN/GI: Abdomen soft, non-tender. Fundus: Firm, non-tender at umbilicus. GENITOURINARY: Light to moderate bleeding. EXTREMITIES: No cyanosis or edema, non-tender, without signs of DVT. Medications and IVs: Active Medications Acetaminophen (Tylenol) 650 mg PO Q4H PRN PRN Reason: PAIN SCALE 1 TO 2 Last Admin: 02/20/18 03:56 Dose: 325 mg Al Hydroxide/Mg Hydroxide (Milk Of Magnesia Liq) 30 ml PO Q12H PRN PRN Reason: Mild Constipation Benzocaine (Americaine 20% Top [place]) 1 spray TOPICAL Q4H PRN PRN Reason: For Perineum Discomfort Bisacodyl (Dulcolax Supp) 10 mg RECTAL DAILY PRN PRN Reason: SEVERE CONSITIPATION Oxytocin (Pitocin 30 Units/Ns 500 Ml Premix) 30 units in 500 mls @ 2 mls/hr IV.SIG TITRATE PRN; Protocol PRN Reason: For induction of labor Ibuprofen (Motrin) 800 mg PO Q8H PRN PRN Reason: For cramping Last Admin: 02/21/18 12:45 Dose: 800 mg Lactulose (Lactulose Liq) 30 ml PO DAILY PRN PRN Reason: SEVERE CONSITIPATION Naloxone HCl (Narcan Inj) 0.1 mg IV.PUSH Q2M PRN PRN Reason: for opiate reversal Ondansetron HCl (Zofran Odt) 4 mg PO Q6H PRN PRN Reason: NAUSEA OR VOMITING Oxycodone/Acetaminophen (Percocet 5/325 Mg) 1 tab PO Q4H PRN PRN Reason: PAIN SCALE 7 TO 10 SEVERE Last Admin: 02/21/18 12:45 Dose: 1 tab Senna/Docusate Sodium (Jamilah-Colace) 1 tab PO BID MELLISSA Last Admin: 02/21/18 10:11 Dose: Not Given Sennosides (Senokot) 17.2 mg PO Q12H PRN PRN Reason: Moderate Constipation Sodium Chloride (Ns Flush) 2 ml IV.FLUSH BID [facility] Last Admin: 02/21/18 10:10 Dose: Not Given Sodium Chloride (Ns Flush) 2 ml IV.FLUSH UNSCH PRN PRN Reason: FLUSH AFTER USING IV ACCESS Witch Tamika/Glycerin (Tucks Pads) 1 applicatio RECTAL QID PRN PRN Reason: HEMORRHOIDS Zolpidem Tartrate (Ambien) 5 mg PO HS PRN PRN Reason: SLEEP Assessment and Plan - Diagnosis (1) (normal spontaneous vaginal delivery) Code(s): O80 - Encounter for full-term uncomplicated delivery Status: Acute Plan: ROUTINE - Plan PT DOING WELL pain well managed with oral pain medication bottle feeding BONDING WITH ROUTINE CARE Discharge Planning: DC HOME TODAY
--- NOTE | 2018-02-21 12:50 | P.DS ---
Date of admission: 02/19/18 14:56 Primary care physician: Kristin Primary Care Physician Attending physician on discharge: Oz Meeks Anticipated date of discharge: 02/21/18 Brief History from admission: PT ADMITTED FOR INDUCTION 37 3/7 WEEKS CHOLESTASIS IN DS: Diagnosis - Discharge Diagnosis (1) (normal spontaneous vaginal delivery) Status: Acute DS: Medications - Discharge Medications Prescriptions: ibuprofen 800 mg PO TID #30 tab oxycodone-acetaminophen 1 tab PO Q4H PRN #14 tab PRN Reason: Pain Scale 7 To 10 Severe DS: Summary Hospital Course: ADMISSION FOR INDUCTION OF AT 37 WEEKS CHOLESTASIS IN LABOR - Time Spent with Patient Total time spent providing and/or coordinating discharge services: Less than 30 minutes Exam Vital signs: Vital Signs 02/20/18 20:00 02/21/18 08:00 Temperature 98.2 F 98.1 F Pulse Rate 74 76 Respiratory Rate 18 18 Blood Pressure 109/66 120/76 Narrative: SEE PP NOTE Results Procedures completed during hospitalization: Discharge Plan - Discharge Disposition Patient Disposition: 01 Discharge Home - Discharge Condition Condition: Good - Discharge Order Discharge Orders: Discharge Order (Routine); Ordered 02/20/18 Ordered By: Katerine Mcrae [employer] WORK[employer] Clear for Discharge (Routine); Ordered 02/21/18 Ordered By: Katerine Mcrae - Physicians Team Primary Care Provider: Primary Kristin Garcia Attending Provider: Oz Mekes - Rxs /Orders / Referrals /Forms Prescriptions: New ibuprofen 800 mg Tablet 800 mg PO TID Qty: 30 RF: 0 oxycodone-acetaminophen 5-325 mg Tablet 1 tab PO Q4H PRN (Reason: Pain Scale 7 To 10 Severe) Qty: 14 RF: 0 No Action No Known Home Medications Referrals: Primary Care Kristin Parker [Primary Care Provider] - See Instructions Oz Meeks MD [Physician] - See Instructions (SCHEDULE AN APPOINTMENT IN 2 WEEKS) - Discharge Instructions Patient Printed Instructions: Preeclampsia and Eclampsia After Delivery (GEN), Vaginal Delivery (DC) - Post Discharge Care Plan Care Plan Goals: Your Health Problems: Goals to Promote Your Health: * To prevent worsening of your condition * To maintain your health at the optimal level Directions to Meet Your Goals: * Take your medications as prescribed * Follow your dietary instruction * Follow activity as directed * Keep your appointments as scheduled * Take your immunizations and boosters as scheduled * If your symptoms worsen call your PCP * If no PCP go to Urgent Care or Emergency Room Smoking is dangerous to your health. Avoid second hand smoke. You may reach the 24-hour crisis hotline for domestic abuse at .
[2018-02-21 20:59] VITALS: BP 121/78; PULSE 62; TEMP 98
== END 2018-02-21 20:18 | disposition home or self-care (01) ==
LOC: H2E 14:56 → H1EA 23:50
PROVIDERS: ADMIT Obstetrics & Gynecology; ATTEND Obstetrics & Gynecology